=== PATIENT | female | born 2000 | race Caucasian/White ===

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

== ENCOUNTER → 2021-05-20 12:45 | Outpatient (CLI) | payer OTHER, SELFPAY ==
--- NOTE | ~2021-05-20 | XR_ITS ---
EXAMINATION: XR chest 2V EXAM DATE: 05/20/2021 13:07 INDICATION: Cough . TECHNIQUE: Frontal and lateral projections of the chest obtained and reviewed. Comparison is made to prior examination from 10/09/2017. FINDINGS: The lungs are clear. There are no pleural effusions. The cardiomediastinal silhouette is within normal limits. There is no pneumothorax suspected. The bones and soft tissues are unremarkab le. IMPRESSION: Unremarkable chest x-ray exam. Reviewed, dictated and finalized at location B.
== END ==
PROVIDERS: PCP Physician Assistant; Visit Provider Physician Assistant
DX: R05 Cough (principal)
CPT/HCPCS: 71046

== ENCOUNTER 2023-03-24 10:47 | Emergency (ER) | payer OTHER, SELFPAY ==
--- NOTE | 2023-03-24 11:29 | ED.GENADULT ---
HPI - General Adult General Chief complaint: Upper Respiratory Infection Stated complaint: Sore Throat Time Seen by Provider: 03/24/23 11:30 Source: patient, RN notes reviewed and old records reviewed Mode of arrival: ambulatory Limitations: no limitations History of Present Illness HPI narrative: 22-year-old female presents to the [facility] with complaints of a sore throat since Monday, 4 days ago. Has been taking allergy medication and NyQuil. States the pain got worse today. Has a history of POTS, takes a beta erika, took her medication just prior to arrival. States that she always gets a high heart rate whenever she goes to see a doctor. Related Data Home Medications Medication Instructions Recorded Confirmed metoprolol succinate 25 mg 25 mg PO DAILY 03/24/23 03/24/23 tablet,extended release 24 hr norgestrel 0.3 mg-ethinyl 1 tablet PO DAILY 03/24/23 03/24/23 estradiol 30 mcg tablet (Elinest) Allergies Allergy/AdvReac Type Severity Reaction Status Date / Time No Known Allergies Allergy Verified 03/24/23 10:52 Review of Systems Review of Systems: All systems reviewed & are unremarkable except as noted in HPI and below Constitutional: Constitutional: Reports no additional constitutional complaints Eyes: Eyes: Reports no additional eye complaints ENT: Reports as per HPI and Reports sore throat Cardiovascular: Cardiovascular: Reports no additional cardiovascular complaints, Denies chest pain and Denies dyspnea Respiratory: Respiratory: Reports no additional respiratory complaints, Denies chest congestion, Denies cough and Denies dyspnea Gastrointestinal: Gastrointestinal: Reports no additional gastrointestinal complaints, Denies abdominal pain, Denies nausea and Denies vomiting Musculoskeletal: Musculoskeletal: Reports no additional musculoskeletal complaints Integumentary/Breasts: Skin/Breast: Reports system reviewed and no additional complaints, except as docu Neurologic: Reports system reviewed and no additional complaints, except as documented Psychiatric: Psychiatric: Reports no additional psychiatric complaints Allergic/Immunologic: Allergic/Immunologic: Reports no additional allergic/immunologic complaints [facility] Past Medical History Medical History No pertinent past medical history Surgical History Surgical History No pertinent past surgical history Family History Family History Mother No pertinent past medical history Social History Social History Smoking status: Never smoker Alcohol intake: current Alcohol use details: Socially Living arrangements: with friend(s) Occupation/Education: student Gender identity (if verbalized by the patient): Female Spiritual care concerns: No Comments At the time of my signature, I reviewed and agree with the nursing past medical, surgical, social, and family history. There is no relevant family history pertinent to the patient complaint. Exam Const: General: cooperative, healthy appearing, comfortable, no acute distress, well developed, alert and well nourished Nutritional Appearance: well nourished Orientation/consciousness: patient oriented x3 Limitations: no limitations HENMT: Head: normal to inspection Ears: hearing grossly normal bilaterally and external ears normal Face/Nose/Sinus: Normal external nose present, Normal nares present, Normal nasal mucous membranes and turbinates present and normal facial exam Face and sinus: normal facial exam Mouth: Yes Normal oral and palatal mucosa present, Yes lip normal and Yes moist mucous membranes Throat: posterior oropharynx normal, uvula midline, posterior oropharynx abnormal erythema and tonsils absent Eyes: General: appearance normal, both eyes and all related s
[2023-03-24 11:31] VITALS: BP 120/88; PULSE 145; RESP 12; TEMP 37.1; O2SAT 100
== END 2023-03-24 11:42 | disposition home or self-care (01) ==
PROVIDERS: Emergency Provider Nurse Practitioner; PCP Family Medicine
DX: J02.0 Streptococcal pharyngitis (principal)
CPT/HCPCS: 87880; 99213; G0463

== ENCOUNTER 2024-09-04 16:56 | Emergency (ER) | payer OTHER, SELFPAY ==
--- NOTE | ~2024-09-04 | XR_ITS ---
EXAMINATION: XR chest 2V Exam Date/Time: 09/04/2024 17:15 CDT HISTORY: cough, exposure to pneumonia Comparison: 05/20/21. RESULT: Lines, tubes, and devices: None. Lungs and pleura: Clear. Cardiomediastinal silhouette: Stable. Other: No acute osseous or upper abdominal finding. IMPRESSION: No acute cardiopulmonary process. Reviewed, dictated and finalized at location K.
[2024-09-04 17:03] VITALS: BP 122/71; PULSE 99; RESP 20; TEMP 37.3; O2SAT 100
--- NOTE | 2024-09-04 17:03 | ED.URI ---
HPI - URI/Sore Throat General Chief Complaint: Upper Respiratory Infection Stated Complaint: Cough/Headache/Neck Pain Time Seen by Provider: 09/04/24 17:03 Source: patient, RN notes reviewed and old records reviewed Mode of arrival: ambulatory Limitations: no limitations History of Present Illness HPI Narrative: 23-year-old female presents to the [facility] with complaints of cough, headache generalized neck discomfort Patient reports a fever of 100 prior to arrival, has taken a seen a min Patient states symptoms started on Monday, 3 days ago. Patient states she has been exposed to multiple people with pneumonia, strong concern for pneumonia Onset (ago): day(s) (3) Related Data Home Medications Medication Instructions Recorded Confirmed metoprolol succinate 25 mg 25 mg PO DAILY 03/24/23 09/04/24 tablet,extended release 24 hr norgestrel 0.3 mg-ethinyl 1 tablet PO DAILY 03/24/23 09/04/24 estradiol 30 mcg tablet (Elinest) Allergies Allergy/AdvReac Type Severity Reaction Status Date / Time No Known Allergies Allergy Verified 09/04/24 17:03 Review of Systems Review of Systems: All systems reviewed & are unremarkable except as noted in HPI and below Constitutional: Constitutional: Reports no additional constitutional complaints ENT: Reports as per HPI Cardiovascular: Cardiovascular: Reports no additional cardiovascular complaints, Denies chest pain and Denies dyspnea Respiratory: Respiratory: Reports as per HPI, Denies chest congestion, Reports cough and Denies dyspnea Gastrointestinal: Gastrointestinal: Reports no additional gastrointestinal complaints, Denies abdominal pain, Denies nausea and Denies vomiting Musculoskeletal: Musculoskeletal: Reports no additional musculoskeletal complaints Integumentary/Breasts: Skin/Breast: Reports system reviewed and no additional complaints, except as docu PMFSH Past Medical History Medical History POTS (postural orthostatic tachycardia syndrome) Surgical History Surgical History History of tonsillectomy Family History Family History Sibling Testicular cancer Social History Social History Smoking status: Never smoker Alcohol intake: current Alcohol use details: Socially Substance use: never Living arrangements: with friend(s) Occupation/Education: student Gender identity (if verbalized by the patient): Female Spiritual care concerns: No Comments At the time of my signature, I reviewed and agree with the nursing past medical, surgical, social, and family history. There is no relevant family history pertinent to the patient complaint. Exam Const: General: cooperative, healthy appearing, comfortable, no acute distress, well developed, alert and well nourished Nutritional Appearance: well nourished Orientation/consciousness: patient oriented x3 Limitations: no limitations HENMT: Head: normal to inspection Ears: hearing grossly normal bilaterally, external ears normal, TM's normal bilaterally, EAC's normal, mastoids normal and no periauricular adenopathy Face/Nose/Sinus: Normal external nose present, normal facial exam and face symmetric Face and sinus: normal facial exam and face symmetric Mouth: Yes Normal oral and palatal mucosa present, Yes lip normal and Yes tongue normal Throat: uvula midline, postnasal drainage, tonsils absent and uvular edema Eyes: General: appearance normal, both eyes and all related structures Alignment and Position: alignment normal Periorbital: periorbital findings normal Neck: Neck: normal visual inspection, full ROM, no lymphadenopathy and no meningeal signs Chest: Chest palpation & inspection: normal inspection of the chest Resp: Effort & Inspection: normal respiratory effort and able to speak in complete sentences Auscultation: clear to auscultation bilaterally, no crackles, no rales, no rhonchi and no wheezes Cardio: Rate: regular rate Skin: General skin exam: normal color and no rashes or lesions noted Lesions: no lesions Rashes: no rashes Wounds: no wounds Neuro: General: patient oriented x3, gait normal, tone normal, moves all extremities and no meningeal signs Cognition (Neuro): normal cognition Speech: normal speech Gait exam (Neuro): Normal gait present Extrem: General: normal to inspection, full ROM, capillary refill normal and normal gait Psych: Appearance: grossly normal and well kempt Mental Status: mental status grossly normal Speech and movement: Normal speech and movement present and Clear speech present Affect: normal affect Attitude: cooperative Course Course Level of Care: Express Care Visit Vital Signs Vital signs: Vital Signs Temperature 99.1 F 09/04/24 17:03 Pulse Rate 99 09/04/24 17:03 Respiratory Rate 20 10/30/24 17:03 Blood Pressure 122/71 09/04/24 17:03 Pulse Oximetry 100 09/04/24 17:03 Oxygen Delivery Room Air 09/04/24 17:03 Temperature 99.1 F 09/04/24 17:03 Pulse Rate 99 09/04/24 17:03 Respiratory Rate 20 09/04/24 17:03 Blood Pressure 122/71 09/04/24 17:03 Pulse Oximetry 100 09/04/24 17:03 Oxygen Delivery Room Air 09/04/24 17:03 Reviewed MDM - URI/Sore Throat MDM Narrative Medical decision making narrative: Patient sitting comfortably in exam room. Nontoxic, vitals stable. Patient in no acute distress Patient presents with 3 day history of upper respiratory symptoms Strep test positive Chest x-ray did not show signs of pneumonia Patient appropriate for outpatient treatment of strep throat with close follow-up Discharge instructions reviewed with patient, as well as provided in writing per nursing staff. The instructions also include specific and strict return/GO TO THE ER as well as f/u information. All questions have been answered, and the patient deny any further questions with discharge and discharge plan. Some parts of this dictation were generated by voice recognition software and may contain typographical and/or grammatical inaccuracies. Differential Diagnosis Differential diagnosis: Likely upper respiratory infection, otitis media, sinusitis, viral infection and pharyngitis Lab Data Labs: Lab Results 09/04/24 Range/Units 17:10 POC Grp A Strep Screen Positive (Negative) Reviewed Imaging Data Radiologist's impression: EXAMINATION: XR chest 2V Exam Date/Time: 09/04/2024 17:15 CDT HISTORY: cough, exposure to pneumonia Comparison: 05/20/21. RESULT: Lines, tubes, and devices: None. Lungs and pleura: Clear. Cardiomediastinal silhouette: Stable. Other: No acute osseous or upper abdominal finding. IMPRESSION: No acute cardiopulmonary process. Critical Care Time Critical Care Time Critical Care Time: No Discharge Plan Discharge Clinical Impression: Strep throat Patient Disposition: Home, Self-Care Condition: Stable Instructions: Antibiotic Form, Strep Throat (DC) Additional Instructions: After 24-48 hours on antibiotics, Throw the toothbrush away, start using a new one. Please be sure to wash bed linens especially pillow cases. Repeat once you finish the antibiotics. Do not share drinks. Take Motrin alternating with Tylenol for pain and fever alternating every 4 hours. Increase fluids, avoid caffeine. Give plenty of water, juice, Gatorade, Pedialyte, ice pops in Jell-O Follow up with Primary provider if not getting better this week For new or worsening symptoms go directly to the emergency room Patient Language: Icelandic Prescriptions: New amoxicillin 875 mg tablet 875 mg PO Q12H Qty: 20 0RF No Action Elinest 0.3-30 mg-mcg tablet 1 tablet PO DAILY metoprolol succinate 25 mg tablet extended release 24 hr 25 mg PO DAILY Follow-up/Referrals: Abraham Flanagan MD [Primary Care Provider] - 2 Weeks ([facility] follow-up) Stand Alone Forms: Work/School Release IP Time of Disposition: 17:29
[2024-09-04 17:20] LABS: EDSTREPNEGPOS1 Positive (Negative)
== END 2024-09-04 17:33 | disposition home or self-care (01) ==
PROVIDERS: Emergency Provider Nurse Practitioner; PCP Family Medicine
DX: J02.0 Streptococcal pharyngitis (principal)
CPT/HCPCS: 71046; 87880; 99213; G0463

== ENCOUNTER 2024-09-13 08:54 | Emergency (ER) | payer OTHER, SELFPAY ==
[2024-09-13 09:01] VITALS: BP 129/72; PULSE 108; RESP 20; TEMP 37.1; O2SAT 100
--- NOTE | 2024-09-13 09:15 | ED_ITS ---
HPI - URI/Sore Throat General Chief Complaint: Upper Respiratory Infection Stated Complaint: Sore Throat Time Seen by Provider: 09/13/24 09:16 Source: patient Mode of arrival: ambulatory Limitations: no limitations History of Present Illness HPI Narrative: 23-year-old female presents complaint of sore throat. Patient seen September 04, had positive strep test. Has been taking antibiotic. Reports that sore throat is intermittent but last few days has been constant. Concerned that antibiotic is not treating infection. Afebrile. All systems reviewed and negative except as noted above. Related Data Home Medications Medication Instructions Recorded Confirmed metoprolol succinate 25 mg 25 mg PO DAILY 03/24/23 09/13/24 tablet,extended release 24 hr norgestrel 0.3 mg-ethinyl 1 tablet PO DAILY 03/24/23 09/13/24 estradiol 30 mcg tablet (Elinest) Allergies Allergy/AdvReac Type Severity Reaction Status Date / Time No Known Allergies Allergy Verified 09/13/24 08:57 Review of Systems Review of Systems: CONSTITUTIONAL: Denies fever, chills, or sweats. EYES: Denies visual changes, redness, or discharge. ENT: Denies rhinorrhea, congestion . Reports sore throat. Denies otalgia. CARDIOVASCULAR: Denies chest pain, palpitations, or edema. RESPIRATORY: Denies cough or dyspnea. GASTROINTESTINAL: Denies abdominal pain, nausea, vomiting, or diarrhea. GENITOURINARY: Denies dysuria or hematuria. SKIN: Denies rash or itching. MUSCULOSKELETAL: Denies back pain, joint pain, or myalgia. NEUROLOGIC: Denies headache, numbness, or weakness. PSYCHIATRIC: Denies anxiety or depression. All other systems reviewed are negative, except as documented in HPI. [facility] Past Medical History Medical History POTS (postural orthostatic tachycardia syndrome) Surgical History Surgical History History of tonsillectomy Family History Family History Sibling Testicular cancer Social History Social History Smoking status: Never smoker Alcohol intake: current Alcohol use details: Socially Substance use: never Living arrangements: with friend(s) Occupation/Education: student Gender identity (if verbalized by the patient): Female Spiritual care concerns: No Comments At time of signature, agree with nursing past medical, surgical, social and family history. There is no relevant family history pertinent to the presenting complaint. Exam Narrative: GENERAL: This is a well-nourished, well-developed patient, in no apparent distress. HEAD: normocephalic, atraumatic. EYES: PERRL. Sclera clear/white. Vision is grossly intact. EARS: External ears normal, auditory canals clear and without drainage, TMs normal without perforation. Hearing grossly intact. NOSE: External nose normal with no obvious nasal discharge, nares without redness, no rhinorrhea. THROAT: Mucous membranes moist, erythema with mild swelling. No exudates. NECK: Neck supple, non-tender without lymphadenopathy, masses or thyromegaly. CARDIOVASCULAR: Regular rate and rhythm without murmurs, gallops, or rubs. RESPIRATORY: Clear to auscultation. Breath sounds equal bilaterally. No wheezes, rales, or rhonchi. SKIN: warm, Dry, intact with no suspicious lesions or rash, good texture and turgor. NEURO: awake, alert, and oriented to person, place and time. There were no obvious focal neurologic abnormalities. EXTREMITIES: No joint tenderness, effusion, or edema noted. Course Course Level of Care: Express Care Visit Vital Signs Vital signs: Vital Signs Temperature 37.1 C 09/13/24 09:01 Pulse Rate 108 H 09/13/24 09:01 Respiratory Rate 20 09/13/24 09:01 Blood Pressure 129/72 09/13/24 09:01 Pulse Oximetry 100 09/13/24 09:01 Oxygen Delivery Room Air 09/13/24 09:01 Temperature 37.1 C 09/13/24 09:01 Pulse Rate 108 H 09/13/24 09:01 Respiratory Rate 20 09/13/24 09:01 Blood Pressure 129/72 09/13/24 09:01 Pulse Oximetry 100 09/13/24 09:01 Oxygen Delivery Room Air 09/13/24 09:01 Reviewed MDM - URI/Sore Throat MDM Narrative Medical decision making narrative: positive rapid strep test. Treatment failure with amoxicillin. Will switch patient to azithromycin. Patient is well-appearing, nontoxic. Patient is aware of diagnosis, understands and agrees to treatment plan. Anticipatory guidance given. Patient agrees to follow-up as directed and is aware of reasons to seek care at the emergency department. Portions of this record may have been created with voice recognition software Differential Diagnosis Differential diagnosis: Likely pharyngitis Lab Data Labs: Lab Results 09/13/24 Range/Units 09:33 POC Grp A Strep Screen Positive (Negative) Discharge Plan Discharge Clinical Impression: Strep throat Patient Disposition: Home, Self-Care Condition: Stable Instructions: Antibiotic Form, Strep Throat (DC) Additional Instructions: Your strep test was positive today. Take antibiotic as prescribed until gone. Change toothbrush after taking antibiotic for 24 hours. Take Tylenol or ibuprofen every 6-8 hours as needed for pain. Drink at least 64 oz of water a day. See your doctor if symptoms are not improving. Prescriptions: New azithromycin 250 mg tablet See Rx Instructions .ROUTE .COMPLEX Qty: 6 0RF Rx Instructions: For 250 mg dose pack: take 500 mg today (day 1), then 250 mg for 4 days (days 2-5) No Action Elinest 0.3-30 mg-mcg tablet 1 tablet PO DAILY metoprolol succinate 25 mg tablet extended release 24 hr 25 mg PO DAILY amoxicillin 875 mg tablet 875 mg PO Q12H Qty: 20 0RF Follow-up/Referrals: Abraham Flanagan MD [Primary Care Provider] - Time of Disposition: 09:31
[2024-09-13 09:36] LABS: EDSTREPNEGPOS1 Positive (Negative)
== END 2024-09-13 09:38 | disposition home or self-care (01) ==
PROVIDERS: Emergency Provider Nurse Practitioner Family; PCP Family Medicine
DX: J02.0 Streptococcal pharyngitis (principal); G90.A Postural orthostatic tachycardia syndrome [POTS]
CPT/HCPCS: 87880; 99213; G0463

== ENCOUNTER 2024-09-20 10:51 | Emergency (ER) | payer OTHER, SELFPAY ==
[2024-09-20 11:04] VITALS: BP 120/73; PULSE 115; RESP 16; TEMP 37; O2SAT 100
--- NOTE | 2024-09-20 11:39 | ED.URI ---
HPI - URI/Sore Throat General Chief Complaint: Upper Respiratory Infection Stated Complaint: throat pain Time Seen by Provider: 09/20/24 11:40 Source: patient Mode of arrival: ambulatory Limitations: no limitations History of Present Illness HPI Narrative: 24-year-old female presents with complaint of sore throat. Patient also reports congestion and postnasal drainage. Symptoms started yesterday. Patient has been seen here twice for strep throat. Tested positive all times. First episode she took amoxicillin. Second episode she took azithromycin. States after taking azithromycin she did feel better. Afebrile. Denies body aches, chills. All systems reviewed and negative except as noted above. Related Data Home Medications Medication Instructions Recorded Confirmed metoprolol succinate 25 mg 25 mg PO DAILY 03/24/23 09/13/24 tablet,extended release 24 hr norgestrel 0.3 mg-ethinyl 1 tablet PO DAILY 03/24/23 09/13/24 estradiol 30 mcg tablet (Elinest) Allergies Allergy/AdvReac Type Severity Reaction Status Date / Time No Known Allergies Allergy Verified 09/13/24 08:57 Review of Systems Review of Systems: CONSTITUTIONAL: Denies fever, chills, or sweats. EYES: Denies visual changes, redness, or discharge. ENT: Reports rhinorrhea, congestion, sore throat. Denies otalgia. CARDIOVASCULAR: Denies chest pain, palpitations, or edema. RESPIRATORY: Denies cough or dyspnea. GASTROINTESTINAL: Denies abdominal pain, nausea, vomiting, or diarrhea. GENITOURINARY: Denies dysuria or hematuria. SKIN: Denies rash or itching. MUSCULOSKELETAL: Denies back pain, joint pain, or myalgia. NEUROLOGIC: Denies headache, numbness, or weakness. PSYCHIATRIC: Denies anxiety or depression. All other systems reviewed are negative, except as documented in HPI. [facility] Past Medical History Medical History POTS (postural orthostatic tachycardia syndrome) Surgical History Surgical History History of tonsillectomy Family History Family History Sibling Testicular cancer Social History Social History (Reviewed 09/04/24 @ 17:21 by CHING Peoples Smoking status: Never smoker Alcohol intake: current Alcohol use details: Socially Substance use: never Living arrangements: with friend(s) Occupation/Education: student Gender identity (if verbalized by the patient): Female Spiritual care concerns: No Comments At time of signature, agree with nursing past medical, surgical, social and family history. There is no relevant family history pertinent to the presenting complaint. Exam Narrative: GENERAL: This is a well-nourished, well-developed patient, in no apparent distress. HEAD: normocephalic, atraumatic. EYES: PERRL. Sclera clear/white. Vision is grossly intact. EARS: External ears normal, auditory canals clear and without drainage, TMs normal without perforation. Hearing grossly intact. NOSE: External nose normal with clear nasal drainage, mild congestion THROAT: Mucous membranes moist, clear postnasal drainage without erythema, swelling or exudate NECK: Neck supple, non-tender without lymphadenopathy, masses or thyromegaly. CARDIOVASCULAR: Regular rate and rhythm without murmurs, gallops, or rubs. RESPIRATORY: Clear to auscultation. Breath sounds equal bilaterally. No wheezes, rales, or rhonchi. SKIN: warm, Dry, intact with no suspicious lesions or rash, good texture and turgor. NEURO: awake, alert, and oriented to person, place and time. There were no obvious focal neurologic abnormalities. EXTREMITIES: No joint tenderness, effusion, or edema noted. Course Course Level of Care: Express Care Visit Vital Signs Vital signs: Vital Signs Temperature 37.0 C 09/20/24 11:04 Pulse Rate 115 H 09/20/24 11:04 Respiratory Rate 16 09/20/24 11:04 Blood Pressure 120/73 09/20/24 11:04 Pulse Oximetry 100 09/20/24 11:04 Oxygen Delivery Room Air 09/20/24 11:04 Temperature 37.0 C 09/20/24 11:04 Pulse Rate 115 H 09/20/24 11:04 Respiratory Rate 16 09/20/24 11:04 Blood Pressure 120/73 09/20/24 11:04 Pulse Oximetry 100 09/20/24 11:04 Oxygen Delivery Room Air 09/20/24 11:04 reviewed MDM - URI/Sore Throat MDM Narrative Medical decision making narrative: patient recently treated with amoxicillin and then azithromycin to treat strep throat. strep test negative today. Will wait for strep culture prior to treating with antibiotics. Recommend antihistamine, Sudafed, nasal spray to treat postnasal drainage, congestion. Patient agrees with plan of care. Patient is aware of diagnosis, understands and agrees to treatment plan. Anticipatory guidance given. Patient agrees to follow-up as directed and is aware of reasons to seek care at the emergency department. Portions of this record may have been created with voice recognition software Differential Diagnosis Differential diagnosis: Likely upper respiratory infection, sinusitis, viral infection and pharyngitis Discharge Plan Discharge Clinical Impression: Acute rhinosinusitis Patient Disposition: Home, Self-Care Condition: Stable Instructions: Rhinosinusitis (DC) Additional Instructions: your strep test was negative today. A strep culture was ordered and results will take 24-48 hours. If your strep culture is positive we will call you at that time and prescribed an antibiotic. Start the following [id number] medications and take as directed on packaging: Zyrtec or Claritin Flonase or Nasacort Sudafed follow-up with your primary care physician if symptoms are not improving. Prescriptions: No Action azithromycin 250 mg tablet See Rx Instructions .ROUTE .COMPLEX Qty: 6 0RF Rx Instructions: For 250 mg dose pack: take 500 mg today (day 1), then 250 mg for 4 days (days 2-5) Elinest 0.3-30 mg-mcg tablet 1 tablet PO DAILY metoprolol succinate 25 mg tablet extended release 24 hr 25 mg PO DAILY amoxicillin 875 mg tablet 875 mg PO Q12H Qty: 20 0RF Follow-up/Referrals: Abraham Flanagan MD [Primary Care Provider] - Time of Disposition: 11:46
[2024-09-23 10:02] LABS: EDSTREPNEGPOS1 Negative (Negative)
== END 2024-09-20 11:51 | disposition home or self-care (01) ==
PROVIDERS: Emergency Provider Nurse Practitioner Family; PCP Family Medicine
DX: J01.90 Acute sinusitis, unspecified (principal)
CPT/HCPCS: 87081; 87880; 99213; G0463

== ENCOUNTER 2024-09-27 08:56 | Outpatient (CLI) | payer OTHER, SELFPAY ==
--- NOTE | ~2024-09-27 | US_ITS ---
EXAMINATION: US abdomen limited DATE: 09/27/2024 09:27 INDICATION: Right upper quadrant abdominal pain and abnormal findings of blood chemistry. TECHNIQUE: Multiple grayscale and Doppler ultrasound images of the abdomen were obtained. COMPARISON: None FINDINGS: Pancreas is normal. Visualized proximal to mid inferior vena cava and aorta are normal. On grayscale imaging there appears to be extrinsic compression along the cephalad margin of the origin of the khadra ac axis with mild poststenotic dilation. Liver has normal echogenicity and contour, with a smooth larisa face. No liver lesion identified. No intrahepatic biliary duct dilation suspected. Portal venous flow was seen in the hepatopetal, normal direction and has normal Doppler waveform. The gallbladder is no rmal in appearance. There is no cholelithiasis. The common bile duct measures 2 mm, which is normal. Sonographic Davila sign was reported as negative by the insurance analyst.Visualized portion of the right kidney demonstrates normal echogenicity and contour with no hydronephrosis. IMPRESSION: 1. Extrinsic compression along the cephalad margin of the origin of the celiac axis which can be seen in the setting of median arcuate ligament/celiac artery compression syndrome. Otherwise normal right upper quadrant ultrasound. Reviewed, dictated and finalized at location B. MANAGER
[2024-09-27 10:17] LABS: Alanine Aminotransferase 184 U/L (6-35); Albumin Level 3.9 g/dL (3.5-5.1); Alkaline Phosphatase 230 U/L (38-126); Aspartate Amino Transferase 111 U/L (14-36); Bilirubin,Total 2.3 mg/dL (0.2-1.3)
== END 2024-09-27 08:57 | disposition home or self-care (01) ==
PROVIDERS: PCP Family Medicine; Visit Provider Family Medicine
DX: R93.5 Abnormal findings on diagnostic imaging of other abdominal regions, including retroperitoneum (principal); R79.89 Other specified abnormal findings of blood chemistry
CPT/HCPCS: 36415; 76705; 80076

== ENCOUNTER 2024-10-02 09:48 | Outpatient (CLI) | payer OTHER, SELFPAY ==
[2024-10-02 10:22] LABS: Alanine Aminotransferase 88 U/L (6-35); Albumin Level 3.7 g/dL (3.5-5.1); Alkaline Phosphatase 191 U/L (38-126); Aspartate Amino Transferase 61 U/L (14-36); Bilirubin,Total 1.7 mg/dL (0.2-1.3)
== END 2024-10-02 09:49 | disposition home or self-care (01) ==
PROVIDERS: PCP Family Medicine; Visit Provider Family Medicine
DX: R79.89 Other specified abnormal findings of blood chemistry (principal)
CPT/HCPCS: 36415; 80076

== ENCOUNTER 2024-10-08 10:38 | Outpatient (CLI) | payer OTHER, SELFPAY ==
[2024-10-08 11:50] LABS: Alanine Aminotransferase 88 U/L (6-35); Alkaline Phosphatase 133 U/L (38-126); Aspartate Amino Transferase 59 U/L (14-36); Bilirubin,Total 1.6 mg/dL (0.2-1.3)
== END 2024-10-08 10:39 | disposition home or self-care (01) ==
LOC: ANHLAB 10:39
PROVIDERS: PCP Family Medicine; Visit Provider Family Medicine
DX: R79.89 Other specified abnormal findings of blood chemistry (principal)
CPT/HCPCS: 36415; 80076